=== PATIENT | female | born 2000 | race Caucasian/White ===

== ENCOUNTER 2020-04-18 10:49 | Inpatient (IN) | payer OTHER ==
[~2020-04-18] VITALS: Ht 162.6 cm; Wt 86.2 kg
--- NOTE | 2020-04-18 14:02 | NUR ---
1330- COVID SWAB SENT TO [facility] , NO COMPLICATIONS,
--- NOTE | 2020-04-18 16:11 | PR ---
[facility] [address] [facility] [place], [place] [address] Signed PP Progress Notes Datetime Report Generated by CPN: 04/18/2020 16:10 SUBJECTIVE: [id number] Pain: Within Normal Limits Vital Signs: [id number] Vital Signs: Reviewed Notable Details: intermittent elevated BPs Cardiovascular: Not Done Respiratory: Not Done Abdomen/Uterus: Abnormal Lochia: Not Done Vulva/Perineum: Not Done Breasts: Not Done CVA Tenderness: Not Done Extremities: Abnormal Incision: Not Applicable Progress: Not Applicable Exam Comments: Fundus firm, NT @ U-1. 1+ LE edema IMPRESSION/PLAN/PROCEDURES: [id number] Impression: Normal Progression Other Impression: Baby being transported to [facility] Plan: Discharge Progress Notes: She is doing well. Her baby is being transferred to [facility] for breathing issues and probable issues with withdrawal. Signing Physician: Nohemy Mayfield MD Copies: ~ *Electronically Signed* 04/18/20 1610 NOHEMY MAYFIELD MD PATIENT NAME: JELENA HERCULES SHAUN PROGRESS NOTE DATE OF : [birth year] PHYSICIAN: NOHEMY MAYFIELD MD RPT #: [id number] REPORT IS CONFIDENTIAL AND NOT TO BE RELEASED WITHOUT AUTHORIZATION
== END 2020-04-18 16:35 | disposition home or self-care (01) | DRG 806 ==
LOC: FBCO 10:49 → FBC 11:30
PROVIDERS: ADMIT Obstetrics & Gynecology; ATTEND Obstetrics & Gynecology
PROC: 10E0XZZ Delivery of Products of Conception, External Approach (ICD-10-PCS; principal; 2020-04-18)
PROC: 0KQM0ZZ Repair Perineum Muscle, Open Approach (ICD-10-PCS; 2020-04-18)
PROC: 3E0234Z Introduction of Serum, Toxoid and Vaccine into Muscle, Percutaneous Approach (ICD-10-PCS; 2020-04-18)
DX: O62.3 Precipitate labor (principal); O99.324 Drug use complicating childbirth; Z37.0 Single live birth; Z3A.38 38 weeks gestation of pregnancy; Z20.822 Contact with and (suspected) exposure to COVID-19; O99.334 Smoking (tobacco) complicating childbirth; F17.210 Nicotine dependence, cigarettes, uncomplicated; F12.90 Cannabis use, unspecified, uncomplicated; F15.10 Other stimulant abuse, uncomplicated; F11.10 Opioid abuse, uncomplicated; O76 Abnormality in fetal heart rate and rhythm complicating labor and delivery; Z23 Encounter for immunization; O99.214 Obesity complicating childbirth; E66.9 Obesity, unspecified; O77.0 Labor and delivery complicated by meconium in amniotic fluid; O70.1 Second degree perineal laceration during delivery; O99.52 Diseases of the respiratory system complicating childbirth; J45.40 Moderate persistent asthma, uncomplicated; Z79.899 Other long term (current) drug therapy
CPT/HCPCS: 82803; 85027; 90715; A9270; J2590; U0003